=== PATIENT | male | born 1980 | race Caucasian/White ===

== ENCOUNTER 2022-06-29 10:39 | Inpatient (IN) | payer OTHER ==
[2022-06-29 11:40] VITALS: BMI 30.7
[2022-06-29] MEDS ORDERED: ACETAMINOPHEN 325 MG TABLET (FP) PO PRN ×2 (13:35)
[2022-06-29] MEDS ORDERED: LOPERAMIDE HCL 2 MG CAPSULE PO PRN (13:35)
[2022-06-29] MEDS ORDERED: ONDANSETRON *ODT* 4 MG TABLET SL PRN (13:35)
[2022-06-29] MEDS ORDERED: diazePAM 5 MG TABLET PO ONE (13:35)
[2022-06-29] MEDS ORDERED: BISMUTH SUBSALICYLATE 524 MG/30 ML PO PRN (13:35)
[2022-06-29] MEDS ORDERED: MAG HYDROX/AL HYDROX/SIMETH 30 ML UNIT-DOSE CUP PO PRN (13:35)
[2022-06-29] MEDS ORDERED: DICYCLOMINE HCL 10 MG CAPSULE PO PRN (13:35)
[2022-06-29] MEDS ORDERED: BENZOCAINE/MENTHOL (CHLORASEPTIC ) LOZENGE MM PRN (13:35)
[2022-06-29] MEDS ORDERED: NALOXONE HCL (KLOXXADO) 8 MG SPRAY NS PRN (13:35)
[2022-06-29] MEDS ORDERED: MAGNESIUM HYDROX 2400MG/30ML ORAL SUSPENSION 30 ML CUP PO PRN (13:35)
[2022-06-29] MEDS ORDERED: POLYETHYLENE GLYCOL (HEALTHYLAX) 3350 17 GM PACKET PO PRN (13:35)
[2022-06-29] MEDS: METHOCARBAMOL 500 MG TABLET PO PRN (13:55)
[2022-06-29] MEDS: hydrOXYzine PAMOATE 25 MG CAPSULE (FP) PO PRN (13:55)
[2022-06-29] MEDS: PRENATAL VITAMINS W/ FOLIC ACID TABLET (FP) PO SCH (13:57)
[2022-06-29 16:38] LABS: CALCIUM 10.2 mg/dL (8.5-10.1); HEMATOCRIT 41.9 % (35.4-49); HEMOGLOBIN 14.1 GM/dL (11.7-16.9); MCH 27.2 pg (25.7-33.7); MCHC 33.7 g/dl (32.0-35.9); MEAN CELL VOLUME 80.7 fl (80-96); MEAN PLT VOLUME 8.5 fl (7.5-11.1); PLATELET COUNT 346 10^3/uL (134-434); RBC 5.18 M/mm3 (4.00-5.60); RDW 14.5 % (11.9-15.9); WHITE BLOOD COUNT 8.2 K/mm3 (4.0-10.0)
[2022-06-29 16:39] LABS: ALBUMIN 4.4 g/dl (3.4-5.0); BLOOD UREA NITROGEN 12.6 mg/dL (7-18)
[2022-06-29 16:42] LABS: CREATININE 1.1 mg/dL (0.55-1.3)
[2022-06-29 16:44] LABS: BILIRUBIN,TOTAL 0.9 mg/dL (0.2-1); TOT PROT 8.2 g/dl (6.4-8.2)
[2022-06-29] MEDS: diazePAM 5 MG TABLET PO SCH ×2 (18:09→22:25)
[2022-06-29] MEDS ORDERED: MELATONIN 5 MG TABLETS PO SCH (22:00)
[2022-06-29] MEDS: THIAMINE HCL 100 MG TABLET (FP) PO SCH (22:25)
[2022-06-30] MEDS: diazePAM 5 MG TABLET PO SCH ×4 (05:24→22:19)
[2022-06-30] MEDS ORDERED: methaDONE HCL 40 MG DISPERSABLE TABLET PO ONE (08:00)
[2022-06-30] MEDS: diazePAM 5 MG TABLET PO PRN ×2 (08:45→13:27)
[2022-06-30] MEDS: PRENATAL VITAMINS W/ FOLIC ACID TABLET (FP) PO SCH (10:05)
[2022-06-30] MEDS: METHOCARBAMOL 500 MG TABLET PO PRN (10:06)
[2022-06-30] MEDS: IBUPROFEN 400 MG TABLET (FP) PO PRN (10:06)
[2022-06-30] MEDS: hydrOXYzine PAMOATE 25 MG CAPSULE (FP) PO PRN (10:06)
[2022-06-30] MEDS: THIAMINE HCL 100 MG TABLET (FP) PO SCH (22:19)
[2022-06-30] MEDS: MELATONIN 5 MG TABLETS PO SCH (22:20)
[2022-07-01] MEDS: methaDONE HCL 40 MG DISPERSABLE TABLET PO SCH (05:27)
[2022-07-01] MEDS: METHOCARBAMOL 500 MG TABLET PO PRN (05:28)
[2022-07-01] MEDS: IBUPROFEN 400 MG TABLET (FP) PO PRN (05:28)
[2022-07-01] MEDS: diazePAM 5 MG TABLET PO SCH ×3 (05:29→22:13)
[2022-07-01] MEDS: diazePAM 5 MG TABLET PO PRN ×2 (10:05→18:27)
[2022-07-01] MEDS: PRENATAL VITAMINS W/ FOLIC ACID TABLET (FP) PO SCH (10:06)
[2022-07-01] MEDS: IBUPROFEN 600 MG TABLET (FP) PO PRN (14:41)
[2022-07-01] MEDS: THIAMINE HCL 100 MG TABLET (FP) PO SCH (22:13)
[2022-07-01] MEDS: MELATONIN 5 MG TABLETS PO SCH (22:15)
[2022-07-02] MEDS: IBUPROFEN 400 MG TABLET (FP) PO PRN (01:44)
[2022-07-02] MEDS: diazePAM 5 MG TABLET PO SCH ×2 (05:16→17:28)
[2022-07-02] MEDS: methaDONE HCL 40 MG DISPERSABLE TABLET PO SCH (05:16)
[2022-07-02] MEDS: PRENATAL VITAMINS W/ FOLIC ACID TABLET (FP) PO SCH (10:15)
[2022-07-02] MEDS: diazePAM 5 MG TABLET PO PRN (10:16)
[2022-07-02] MEDS: IBUPROFEN 600 MG TABLET (FP) PO PRN (14:57)
[2022-07-02] MEDS: METHOCARBAMOL 500 MG TABLET PO PRN (14:57)
[2022-07-02] MEDS: hydrOXYzine PAMOATE 25 MG CAPSULE (FP) PO PRN (14:57)
[2022-07-02] MEDS: THIAMINE HCL 100 MG TABLET (FP) PO SCH (22:39)
[2022-07-02] MEDS: MELATONIN 5 MG TABLETS PO SCH (22:40)
[2022-07-03] MEDS: methaDONE HCL 40 MG DISPERSABLE TABLET PO SCH (05:29)
[2022-07-03] MEDS ORDERED: diazePAM 5 MG TABLET PO ONE (06:00)
[2022-07-03 06:04] VITALS: RESP 17
[2022-07-03 09:18] VITALS: BP 141/68; PULSE 108; TEMP 97.8
[2022-07-03] MEDS: PRENATAL VITAMINS W/ FOLIC ACID TABLET (FP) PO SCH (10:17)
== END 2022-07-03 10:54 | disposition home or self-care (01) | DRG 773 ==
LOC: YASAS 10:39 → Y6N 12:51
PROVIDERS: ADMIT Allergy & Immunology; ATTEND Surgery
PROC: HZ2ZZZZ Detoxification Services for Substance Abuse Treatment (ICD-10-PCS; principal; 2022-06-29)
DX: F13.230 Sedative, hypnotic or anxiolytic dependence with withdrawal, uncomplicated (principal); F11.20 Opioid dependence, uncomplicated; F12.20 Cannabis dependence, uncomplicated; F19.282 Other psychoactive substance dependence with psychoactive substance-induced sleep disorder; F19.24 Other psychoactive substance dependence with psychoactive substance-induced mood disorder; F43.10 Post-traumatic stress disorder, unspecified; Z62.810 Personal history of physical and sexual abuse in childhood; Z91.410 Personal history of adult physical and sexual abuse; Z87.891 Personal history of nicotine dependence; Z86.69 Personal history of other diseases of the nervous system and sense organs
CPT/HCPCS: 36415; 80053; 82310; 85027; 86780; 93005; 93010; C9803-CS; U0003; U0005

== ENCOUNTER 2024-07-22 19:27 | Inpatient (IN) | payer OTHER ==
[2024-07-22 21:48] VITALS: BMI 32.4
[2024-07-22] MEDS ORDERED: BENZONATATE 200 MG CAPSULE PO PRN (23:04)
[2024-07-22] MEDS ORDERED: NALOXONE (NARCAN) HCL 4 MG/0.1 ML SPRAY NS PRN (23:04)
[2024-07-22] MEDS ORDERED: IBUPROFEN 400 MG TABLET (FP) PO PRN (23:04)
[2024-07-22] MEDS ORDERED: BENZOCAINE/MENTHOL (CHLORASEPTIC ) LOZENGE MM PRN (23:04)
[2024-07-22] MEDS ORDERED: guaiFENesin 600 MG TABLET.ER (FP) PO PRN (23:04)
[2024-07-22] MEDS ORDERED: ACETAMINOPHEN 325 MG TABLET (FP) PO PRN (23:04)
[2024-07-22] MEDS ORDERED: ONDANSETRON *ODT* 4 MG TABLET SL PRN (23:04)
[2024-07-22] MEDS ORDERED: MAG HYDROX/AL HYDROX/SIMETH 30 ML UNIT-DOSE CUP PO PRN (23:04)
[2024-07-22] MEDS ORDERED: BISMUTH SUBSALICYLATE 524 MG/30 ML PO PRN (23:04)
[2024-07-22] MEDS ORDERED: POLYETHYLENE GLYCOL (HEALTHYLAX) 3350 17 GM PACKET PO PRN (23:04)
[2024-07-22] MEDS ORDERED: MAGNESIUM HYDROX 2400MG/30ML ORAL SUSPENSION 30 ML CUP PO PRN (23:04)
[2024-07-22] MEDS ORDERED: DICYCLOMINE HCL 10 MG CAPSULE PO PRN (23:04)
[2024-07-22] MEDS ORDERED: IBUPROFEN 600 MG TABLET (FP) PO PRN (23:04)
[2024-07-22] MEDS ORDERED: LOPERAMIDE HCL 2 MG CAPSULE PO PRN (23:04)
[2024-07-23] MEDS ORDERED: diazePAM 5 MG TABLET ONE (01:18)
[2024-07-23] MEDS: diazePAM 5 MG TABLET PO SCH (01:50)
[2024-07-23] MEDS: hydrOXYzine PAMOATE 25 MG CAPSULE (FP) PO PRN (02:46)
[2024-07-23] MEDS: PRENATAL VITAMINS W/ FOLIC ACID TABLET (FP) PO SCH (10:25)
[2024-07-23] MEDS: methaDONE HCL 40 MG DISPERSABLE TABLET PO ONE (10:26)
[2024-07-23 12:31] LABS: CHLORIDE 106 mmol/L (98-107); HEMATOCRIT 38.4 % (35.4-49); HEMOGLOBIN 12.8 GM/dL (11.7-16.9); MCH 27.6 pg (25.7-33.7); MCHC 33.3 g/dl (32.0-35.9); PLATELET COUNT 309 10^3/uL (134-434); POTASSIUM 3.8 mmol/L (3.5-5.1); RBC 4.63 M/mm3 (4.00-5.60); SODIUM 140 mmol/L (136-145); WHITE BLOOD COUNT 7.5 K/mm3 (4.0-10.0)
[2024-07-23 12:41] LABS: ALBUMIN 3.6 g/dl (3.4-5.0); BLOOD UREA NITROGEN 14.6 mg/dL (7-18); CALCIUM 9.2 mg/dL (8.5-10.1)
[2024-07-23 12:42] LABS: ANION GAP 7 mmol/L (4-13); CO2 28 mmol/L (21-32); GLUCOSE,RANDOM 129 mg/dL (74-106)
[2024-07-23 12:44] LABS: CREATININE 0.9 mg/dL (0.55-1.3); SGOT/AST 24 U/L (15-37); SGPT/ALT 88 U/L (13-61)
[2024-07-23 12:45] LABS: BILIRUBIN,TOTAL 0.5 mg/dL (0.2-1)
[2024-07-23 12:46] LABS: TOT PROT 7.2 g/dl (6.4-8.2)
[2024-07-23 12:47] LABS: ALK PHOS 186 U/L (45-117)
[2024-07-23] MEDS: METHOCARBAMOL 500 MG TABLET PO PRN (17:19)
[2024-07-23] MEDS: cloNIDine HCL 0.1 MG TABLET PO PRN (19:37)
[2024-07-23] MEDS: diazePAM 5 MG TABLET PO PRN (19:37)
[2024-07-23] MEDS ORDERED: MELATONIN 5 MG TABLETS PO SCH (22:00)
[2024-07-23] MEDS: MELATONIN 5 MG TABLETS PO SCH (22:18)
[2024-07-23] MEDS: THIAMINE 100 MG TABLET PO SCH (22:18)
[2024-07-24] MEDS: diazePAM 5 MG TABLET PO SCH (05:23)
[2024-07-24] MEDS: methaDONE HCL 40 MG DISPERSABLE TABLET PO SCH (05:24)
[2024-07-24] MEDS: GABAPENTIN 100 MG CAPSULE PO SCH (13:08)
[2024-07-24] MEDS: levETIRAcetam 500 MG TABLET (FP) PO SCH (21:35)
[2024-07-24] MEDS: SUVOREXANT 10 MG TABLET PO PRN (21:35)
[2024-07-25] MEDS: diazePAM 5 MG TABLET PO SCH (05:55)
[2024-07-25] MEDS: NALOXONE (NYS OPIOID OVERDOSE PROGRAM) 4 MG/0.1 ML SPRAY NS SCH (11:06)
[2024-07-25] MEDS: GABAPENTIN 300 MG CAPSULE PO SCH (13:06)
[2024-07-25] MEDS ORDERED: GABAPENTIN 100 MG CAPSULE PO SCH (14:00)
[2024-07-26] MEDS: diazePAM 5 MG TABLET PO ONE (06:06)
[2024-07-26 10:42] VITALS: RESP 18
[2024-07-26 13:12] VITALS: BP 133/82; PULSE 85; TEMP 98
[2024-07-27] MEDS ORDERED: diazePAM 5 MG TABLET PO ONE (06:00)
== END 2024-07-26 12:49 | disposition other institution (70) | DRG 773 ==
LOC: YASAS 19:27 → Y6N 07-23 01:19
PROVIDERS: ADMIT Allergy & Immunology; ATTEND Allergy & Immunology
PROC: HZ2ZZZZ Detoxification Services for Substance Abuse Treatment (ICD-10-PCS; principal; 2024-07-23)
DX: F13.230 Sedative, hypnotic or anxiolytic dependence with withdrawal, uncomplicated (principal); F11.20 Opioid dependence, uncomplicated; F14.20 Cocaine dependence, uncomplicated; F12.20 Cannabis dependence, uncomplicated; F19.282 Other psychoactive substance dependence with psychoactive substance-induced sleep disorder; F19.24 Other psychoactive substance dependence with psychoactive substance-induced mood disorder; F43.10 Post-traumatic stress disorder, unspecified; Z86.69 Personal history of other diseases of the nervous system and sense organs; Z62.810 Personal history of physical and sexual abuse in childhood; Z91.410 Personal history of adult physical and sexual abuse; Z87.891 Personal history of nicotine dependence; Z63.0 Problems in relationship with spouse or partner; Z63.8 Other specified problems related to primary support group
CPT/HCPCS: 36415; 80053; 80307; 85027; 86780; 87811; 93005; 93010

== ENCOUNTER 2024-07-26 13:00 | Inpatient (IN) | payer OTHER ==
[2024-07-26] MEDS ORDERED: MAG HYDROX/AL HYDROX/SIMETH 30 ML UNIT-DOSE CUP PO PRN (17:54)
[2024-07-26] MEDS ORDERED: NALOXONE HCL 0.4 MG/ML VIAL IVPUSH PRN (17:54)
[2024-07-26] MEDS ORDERED: BENZONATATE 200 MG CAPSULE PO PRN (17:54)
[2024-07-26] MEDS ORDERED: BENZOCAINE/MENTHOL (CHLORASEPTIC ) LOZENGE MM PRN (17:54)
[2024-07-26] MEDS ORDERED: POLYETHYLENE GLYCOL (HEALTHYLAX) 3350 17 GM PACKET PO PRN (17:54)
[2024-07-26] MEDS ORDERED: hydrOXYzine PAMOATE 25 MG CAPSULE (FP) PO PRN (17:54)
[2024-07-26] MEDS ORDERED: MAGNESIUM HYDROX 2400MG/30ML ORAL SUSPENSION 30 ML CUP PO PRN (17:54)
[2024-07-26] MEDS ORDERED: guaiFENesin 600 MG TABLET.ER (FP) PO PRN (17:54)
[2024-07-26] MEDS ORDERED: LOPERAMIDE HCL 2 MG CAPSULE PO PRN (17:54)
[2024-07-26] MEDS ORDERED: NALOXONE (NARCAN) HCL 4 MG/0.1 ML SPRAY NS PRN (17:54)
[2024-07-26] MEDS: MELATONIN 5 MG TABLETS PO SCH (21:23)
[2024-07-26] MEDS: THIAMINE 100 MG TABLET PO SCH (21:24)
[2024-07-26] MEDS: levETIRAcetam 500 MG TABLET (FP) PO SCH (21:24)
[2024-07-26] MEDS: GABAPENTIN 300 MG CAPSULE PO SCH (21:24)
[2024-07-26] MEDS: METHOCARBAMOL 500 MG TABLET PO PRN (21:27)
[2024-07-26] MEDS: SUVOREXANT 10 MG TABLET PO ONE (21:41)
[2024-07-27] MEDS: methaDONE HCL 40 MG DISPERSABLE TABLET PO SCH (06:01)
[2024-07-27] MEDS ORDERED: hydrOXYzine PAMOATE 25 MG CAPSULE (FP) PO PRN (09:30)
[2024-07-27] MEDS: PRENATAL VITAMINS W/ FOLIC ACID TABLET (FP) PO SCH (10:19)
[2024-07-27] MEDS: SERTRALINE HCL 25 MG TABLET (FP) PO SCH (10:20)
[2024-07-27] MEDS: IBUPROFEN 400 MG TABLET (FP) PO PRN (11:49)
[2024-07-27] MEDS: GABAPENTIN 400 MG CAPSULE PO SCH (14:50)
[2024-07-27] MEDS: SUVOREXANT 10 MG TABLET PO PRN (21:18)
[2024-07-29] MEDS: SERTRALINE HCL 50 MG TABLET (FP) PO SCH (10:00)
[2024-08-08] MEDS: IBUPROFEN 600 MG TABLET (FP) PO PRN (18:05)
[2024-08-10] MEDS: ACETAMINOPHEN 325 MG TABLET (FP) PO PRN (21:19)
[2024-08-16] MEDS: SUVOREXANT 20 MG TABLET PO PRN (21:37)
[2024-08-16] MEDS: BACLOFEN 10 MG TABLET (FP) PO SCH (21:38)
[2024-08-19 10:40] LABS: POTASSIUM 4.8 mmol/L (3.5-5.1)
[2024-08-19 10:42] LABS: BLOOD UREA NITROGEN 18.2 mg/dL (7-18); CALCIUM 9.6 mg/dL (8.5-10.1)
[2024-08-19 10:47] LABS: BILIRUBIN,TOTAL 0.9 mg/dL (0.2-1); TOT PROT 7.8 g/dl (6.4-8.2)
[2024-08-23 06:41] VITALS: BP 140/78; PULSE 86; RESP 17; TEMP 97.6
[2024-08-23] MEDS: NALOXONE (NYS OPIOID OVERDOSE PROGRAM) 4 MG/0.1 ML SPRAY NS PRN (09:36)
== END 2024-08-23 09:37 | disposition home or self-care (01) | DRG 772 ==
LOC: YASAS 13:00 → Y3NR 13:02 → Y3E 07-28 09:41 → Y3NR 08-21 10:15
PROVIDERS: ADMIT Psychiatry & Neurology Pain Medicine; ATTEND Psychiatry & Neurology Pain Medicine
PROC: HZ42ZZZ Group Counseling for Substance Abuse Treatment, Cognitive-Behavioral (ICD-10-PCS; principal; 2024-07-26)
DX: F13.20 Sedative, hypnotic or anxiolytic dependence, uncomplicated (principal); F11.20 Opioid dependence, uncomplicated; F14.20 Cocaine dependence, uncomplicated; F19.282 Other psychoactive substance dependence with psychoactive substance-induced sleep disorder; F19.280 Other psychoactive substance dependence with psychoactive substance-induced anxiety disorder; F19.24 Other psychoactive substance dependence with psychoactive substance-induced mood disorder; F43.10 Post-traumatic stress disorder, unspecified; F41.9 Anxiety disorder, unspecified; F32.A Depression, unspecified; G40.509 Epileptic seizures related to external causes, not intractable, without status epilepticus; Z87.891 Personal history of nicotine dependence
CPT/HCPCS: 36415; 80053; 82962; 86803; 87635; J0475